=== PATIENT | male | born 1955 | race Caucasian/White ===

== ENCOUNTER 2024-12-23 11:52 | Emergency (ER) | payer MEDICARE, OTHER ==
[~2024-12-23] VITALS: Ht 177.8 cm; Wt 70.0 kg
[2024-12-23 11:54] VITALS: TEMP 97.4
--- NOTE | 2024-12-23 13:06 | Physician Documentation ---
History of Present Illness ~ Chief Complaint: Neck pain Stated Complaint: NECK PAIN/H BP Time Seen by MD: 14:04 HPI Presents with the acute onset right-sided neck pain without any traumatic injury. The pain is worse when rotating his neck or turning his head. States the pain radiates down to his right arm 69-year-old male presents to the emergency department for evaluation of right- sided arm and neck pain that radiates to his chest he is 1 day. Patient denies any overuse or traumatic injuries that he is aware of at this time. Patient reports he has a significant cardiac history history with forced into place hypertension and multiple other conditions that he reports he takes medication for at this time. Day of Onset: Dec 23, 2024 Medication Reconciliation Allergies: Coded Allergies: acetaminophen (Unverified Allergy, Unknown, 12/23/24) hydrocodone (Unverified Allergy, Unknown, 12/23/24) Past Medical History Past Medical History: No Pertinent History Past Surgical History: no surgical history Alcohol Use: Occasionally Review of Systems ROS As stated above in the HPI, otherwise all systems are reviewed and negative. Physical Exam Vital Signs: Temperature: 97.4, Source: Temporal, Heart Rate: 73, Respiratory Rate: 18, BP: 117/76, Pulse Oximetry: 96, Weight: 70.000 Physical Exam VITALS: Reviewed and as above. GENERAL: Alert, no apparent distress. HEENT: Normocephalic, atraumatic, PERRL, EOMI, dry mucosa, no erythema RESPIRATORY: Lungs clear, normal breath sounds, no respiratory distress. CHEST: No accessory muscle use, no retractions CV: Regular rate, rhythm, no edema, no murmur, No: JVD GI: Soft, non-tender, bowels sounds present, no rebound, guarding, or rigidity BACK: No CVA tenderness, or swelling MUSCULOSKELETAL No deformities, no edema, tenderness to the right shoulder with palpation and range of motion mild tenderness along the trapezius connecting from the cervical spine to the right shoulder. Point tenderness with cervical palpation. SKIN: Warm and dry, no rash NEURO: Oriented x4, No motor or sensory deficit PSYCH: Normal mood and affect, no agitation Progress Results/Orders Results/Orders Orders - YESENIA RENE OPERATIONS ENGINEER Chest,Single View (12/23/24 14:28) Hs Troponin I W Calculations (12/23/24 16:09) Hs Troponin I W Calculations (12/23/24 17:09) Completed Orders - YESENIA RENE OPERATIONS ENGINEER Cbc/Diff (12/23/24 14:09) Chest,Single View (12/23/24 14:28) Electrocardiogram (12/23/24 14:09) Hs Troponin I W Calculations (12/23/24 14:09) CMP (12/23/24 14:09) Ketorolac Trometh 30mg/Ml Vial (Toradol (12/23/24 15:45) Cyclobenzaprine Tablet (Flexeril Tablet) (12/23/24 15:45) Medications Received in ER Medications (Trade) Dose Ordered Sig/Tanner Route PRN Reason Start Time Stop Time Status Last Admin Dose Admin (Toradol inj. 30mg/ml) 30 mg ONCE ONCE IM 12/23/24 15:45 12/23/24 15:50 DC 12/23/24 16:01 30 MG (Flexeril tablet) 10 mg ONCE ONCE PO 12/23/24 15:45 12/23/24 15:46 DC 12/23/24 16:01 10 MG Vital Signs 12/23/24 12/23/24 12/23/24 11:54 16:01 16:09 Temp 97.4 Pulse 73 71 Resp 18 16 16 B/P (MAP) 117/76 122/71 Pulse Ox 96 98 Laboratory Tests Test 12/23/24 14:23 White Blood Count 8.0 Red Blood Count 4.40 L Hemoglobin 14.6 Hematocrit 44.4 Mean Corpuscular Volume 100.9 H Mean Corpuscular Hemoglobin 33.3 H Mean Corpuscular Hemoglobin Concent 33.0 Red Cell Distribution Width 14.6 H Platelet Count 196 Mean Platelet Volume 8.2 Neutrophils (%) (Auto) 65.8 Lymphocytes (%) (Auto) 10.7 L Monocytes (%) (Auto) 6.6 Eosinophils (%) (Auto) 16.3 H Basophils (%) (Auto) 0.6 Neutrophils # (Auto) 5.3 Lymphocytes # (Auto) 0.9 L Monocytes # (Auto) 0.5 Eosinophils # (Auto) 1.3 H Basophils # (Auto) 0.0 CBC Comment Sodium Level 140 Potassium Level 4.4 Chloride Level 107 Carbon Dioxide Level 25.2 Anion Gap 8 Blood Urea Nitrogen 17 Creatinine 1.18 H Estimated GFR/1.73 m2 62 BUN/Creatinine Ratio 14.4 Glucose Level 82 Calcium Level 8.7 Total Bilirubin 0.3 Aspartate Amino Transf (AST/SGOT) 14 Alanine Aminotransferase (ALT/SGPT) 14 Alkaline Phosphatase 93 Troponin I High Sensitivity 4 Total Protein 8.1 Albumin 3.9 Globulin 4.2 Albumin/Globulin Ratio 0.9 L Chemistry Comments Medical Decision Making Additional info obtained from: other Findings This patient presents with back pain most consistent with musculoskeletal spasm/strain/cervical radiculopathy. No back pain red flags on history or physical. Presentation not consistent with malignancy (lack of history of malignancy, lack of B symptoms), fracture (no trauma, no bony tenderness to palpation), transverse myelitis, (no sensory loss, no distal weakness), thoracic aortic dissection (equal peripheral pulses, no tachycardia, story does not fit), pneumonia (afebrile, no infectious symptoms), pulmonary embolism (Wells low risk), osteomyelitis or epidural abscess (no IVDU, vertebral tenderness). No concern for cardiac involvement at this time has 12 lead chest x-ray troponin and lab work all normal. X-ray of the cervical spine is without abnormality other than degenerative changes this time. Patient was given Toradol and Flexeril with significant improvement. Patient will be prescribed 5 days of Toradol with strict instructions and education regarding how to take this me dication. Patient was educated on not driving or operating equipment while taking this medication. Patient was also instructed to not take the medication if his symptoms subside and he does not need the medication. With his primary care provider. Patient will return to the emergency department with any worsening of his current symptoms or any additional concerning symptoms that we discussed here today i.e. increased pain increased numbness or tingling in his extremities fever chills nausea vomiting bladder incontinence numbness to his perineum or any other concerning symptoms that we discussed here today. Differential Dx:Considerations: Include: Cervical muscle spasm, Discitis, DJD, Meningitis, Thyroiditis, Torticollis, Vertebral artery dissect., Other Departure Disposition: 01 HOME / SELF CARE / HOMELESS Impression: Primary Impression: Neck pain Additional Impressions: Strain of neck muscle Cervical radiculopathy Additional Instructions: This patient presents with back pain most consistent with musculoskeletal spasm/strain/cervical radiculopathy. No back pain red flags on history or physical. Presentation not consistent with malignancy (lack of history of malignancy, lack of B symptoms), fracture (no trauma, no bony tenderness to palpation), transverse myelitis, (no sensory loss, no distal weakness), thoracic aortic dissection (equal peripheral pulses, no tachycardia, story does not fit), pneumonia (afebrile, no infectious symptoms), pulmonary embolism (Wells low risk), osteomyelitis or epidural abscess (no IVDU, vertebral tenderness). No concern for cardiac involvement at this time has 12 lead chest x-ray troponin and lab work all normal. X-ray of the cervical spine is without abnormality other than degenerative changes this time. Patient was given Toradol and Flexeril with significant improvement. Patient will be prescribed 5 days of Toradol with strict instructions and education regarding how to take this medication. Patient was educated on not driving or operating equipment while taking this medication. Patient was also instructed to not take the medication if his symptoms subside and he does not need the medication. With his primary care provider. Patient will return to the emergency department with any worsening of his current symptoms or any additional concerning symptoms that we discussed here today i.e. increased pain increased numbness or tingling in his extremities fever chills nausea vomiting bladder incontinence numbness to his perineum or any other concerning symptoms that we discussed here today. Referrals: NO PRIMARY CARE PROVIDER (PCP) Prescriptions Cyclobenzaprine* (Cyclobenzaprine*) 10 Mg Tablet 1 TAB PO BID for 5 Days, #10 TAB Prov: EYSENIA RENE 12/23/24 Education Educated: Patient Educated regarding: diagnosis, treatment, need for follow up Signature Scribe Signature: k Attestation: Scribed for Emergency,Department by Ishmael Acevedo NP . 12/23/24 13:06 ISHMAEL OLMOS NP Dec 23, 2024 13:06 YESENIA RENE Dec 23, 2024 14:14
[2024-12-23] MEDS ORDERED: ketorolac trometh 30MG/ML vial 30 MG/ML VIAL IV ONE (13:40)
[2024-12-23] MEDS ORDERED: ketorolac trometh 15mg/ml vial 15 MG/ML ML IV ONE (13:45)
--- NOTE | 2024-12-23 13:54 | RADIOLOGY REPORT ---
EXAM: DI CERVICAL SPINE LTD HISTORY: NECK PAIN COMPARISON: None TECHNIQUE: AP, lateral, and odontoid views of the cervical spine were performed. FINDINGS: No cervical fracture, listhesis, or prevertebral soft tissue edema are identified. There is severe Cervical degenerative disc disease and facet arthropathy. There is straightening of normal cervical lordosis. IMPRESSION: 1. No fracture of the cervical spine. 2. Advanced cervical degenerative disc disease and facet arthropathy. 3. Straightening of normal cervical lordosis may be positional, chronic for the patient, or due to muscle spasm.
[2024-12-23 14:35] LABS: MEAN PLATELET VOLUME 8.2 FL (7.4-10.4); RED CELL DISTRIBUTION WIDTH 14.6 % (11.5-14.5)
--- NOTE | 2024-12-23 14:40 | RADIOLOGY REPORT ---
CHEST RADIOGRAPH Indication: CHEST PAIN Technique: Single frontal view of the chest was obtained COMPARISON: None FINDINGS: Lines and Tubes: None Lungs: Clear Pleura: No effusion. No pneumothorax. Cardiomediastinal contours: Unremarkable Bones: Unremarkable IMPRESSION: No acute disease.
[2024-12-23 14:57] LABS: CREATININE 1.18 MG/DL (0.60-1.10); TOTAL CARBON DIOXIDE 25.2 MMOL/L (24-32); eCRCL 60 ML/MIN; eGFR 62 ML/MIN
--- NOTE | 2024-12-23 15:08 | ELECTROCARDIOGRAPH REPORT ---
[facility] Test Date: 2024-12-23 Test Time: 15:06:47 Pat Name: ELAN MCKEON Department: [facility]-ER Patient ID: [facility]-[id number] Room: Gender: M Accounting Analyst: : 1955 Requested By: YESENIA RENE Order Number: [id number] Reading MD: Measurements Intervals [place] Rate: 82 P: 44 AK: 164 QRS: 73 QRSD: 87 T: 20 QT: 355 QTc: 415 Interpretive Statements Sinus rhythm Please click the below link to view image of tracing.
[2024-12-23] MEDS: ketorolac trometh 30MG/ML vial 30 MG/ML VIAL IM ONE (16:01)
[2024-12-23 16:09] VITALS: BP 122/71; PULSE 71; RESP 16; O2SAT 98
[2024-12-23] MEDS ORDERED: CYCL-1 PO (16:36)
== END 2024-12-23 16:39 | disposition home or self-care (01) ==
LOC: ER 11:53
DX: S16.1XXA Strain of muscle, fascia and tendon at neck level, initial encounter (principal); I10 Essential (primary) hypertension; Z88.5 Allergy status to narcotic agent; Z72.89 Other problems related to lifestyle; X58.XXXA Exposure to other specified factors, initial encounter; Y93.89 Activity, other specified; Y92.89 Other specified places as the place of occurrence of the external cause; Y99.8 Other external cause status
CPT/HCPCS: 36415; 71045; 72040; 80053; 84484; 85025; 93005; 96372; 99285; J1885

== ENCOUNTER 2024-12-31 02:11 | Emergency (ER) | payer MEDICARE ==
[~2024-12-31] VITALS: Ht 177.8 cm; Wt 70.3 kg
[~2024-12-31 02:11] MED LIST: CYCL-1 PO
[2024-12-31 02:48] LABS: MEAN PLATELET VOLUME 8.2 FL (7.4-10.4); RED CELL DISTRIBUTION WIDTH 14.3 % (11.5-14.5)
[2024-12-31 03:06] LABS: CREATININE 1.40 MG/DL (0.60-1.10); PRO BRAIN NATRIURETIC PEPTIDE 124 PG/ML (0-125); TOTAL CARBON DIOXIDE 25.2 MMOL/L (24-32); eCRCL 51 ML/MIN; eGFR 51 ML/MIN
--- NOTE | 2024-12-31 03:46 | RADIOLOGY REPORT ---
CHEST RADIOGRAPH Indication: CP Technique: Single frontal view of the chest was obtained COMPARISON: DI CHEST,SINGLE VIEW on DOS: 12/23/24 FINDINGS: Lines and Tubes: None Lungs: Small left pleural effusion. No evidence of focal consolidation. No pneumothorax. Cardiomediastinal contours: Unremarkable Bones: Unremarkable IMPRESSION: 1. Small left pleural effusion.
[2024-12-31] MEDS ORDERED: CYCL-1 PO (04:08)
--- NOTE | 2024-12-31 04:09 | Physician Documentation ---
History of Present Illness ~ Chief Complaint: Chest Pain Stated Complaint: CHEST PAIN Time Seen by MD: 03:10 Mode of Arrival: POV HPI 69 year old male reports sternal pressure/pain that improved with home doses of nitroglyerin. Has history of CAD with 4 stents. Is now asymptomatic and denies chest pain, N/V/D, urinary symptoms, cough, shortness of breath. Medication Reconciliation Allergies: Coded Allergies: acetaminophen (Unverified Allergy, Unknown, 12/23/24) hydrocodone (Unverified Allergy, Unknown, 12/23/24) Scheduled Cyclobenzaprine* (Cyclobenzaprine*), 1 TAB PO BID Past Medical History Past Medical History: No Pertinent History Past Surgical History: no surgical history Alcohol Use: Occasionally Review of Systems All Other Systems at this time: Reviewed and Negative Physical Exam Vital Signs: RN Vital Signs have been reviewed: Yes, Temperature: 97.7, Source: Oral, Heart Rate: 63, Respiratory Rate: 11, BP: 100/69, Pulse Oximetry: 98, Weight: 70.300 Oxygen Flow Rate: 0 Physical Exam HEENT: PERRL, moist oral mucosa, EOMI Pulmonary: No respiratory distress CTAB Cardiac: RRR, no murmur, rub or gallop MSK: no deformity Skin: w/d/i, no rash Neuro: alert, nonfocal Psych: normal affect Progress Results/Orders Results/Orders Orders - UCHE GARY MD Chest,Single View (12/31/24 02:40) Monitor (12/31/24 02:13) Saline Lock (12/31/24 02:13) Oxygen (12/31/24 02:13) Electrocardiogram (12/31/24 02:13) Hs Troponin I W Calculations (12/31/24 05:13) Completed Orders - UCHE GARY MD Chest,Single View (12/31/24 02:40) Cbc/Diff (12/31/24 02:13) BMP (12/31/24 02:13) PBNP (12/31/24 02:13) Hs Troponin I W Calculations (12/31/24 02:13) Hs Troponin I W Calculations (12/31/24 04:13) Vital Signs 12/31/24 12/31/24 12/31/24 02:29 03:19 03:45 Temp 97.7 97.7 Pulse 69 63 Resp 15 11 B/P (MAP) 126/75 100/69 (79) Pulse Ox 96 98 O2 Flow Rate 0 0 Laboratory Tests Test 12/31/24 02:20 12/31/24 03:34 White Blood Count 8.6 Red Blood Count 4.00 L Hemoglobin 13.7 L Hematocrit 40.1 L Mean Corpuscular Volume 100.3 H Mean Corpuscular Hemoglobin 34.3 H Mean Corpuscular Hemoglobin Concent 34.2 Red Cell Distribution Width 14.3 Platelet Count 182 Mean Platelet Volume 8.2 Neutrophils (%) (Auto) 47.6 Lymphocytes (%) (Auto) 15.3 L Monocytes (%) (Auto) 6.5 Eosinophils (%) (Auto) 29.1 H Basophils (%) (Auto) 1.5 H Neutrophils # (Auto) 4.1 Lymphocytes # (Auto) 1.3 Monocytes # (Auto) 0.6 Eosinophils # (Auto) 2.5 H Basophils # (Auto) 0.1 CBC Comment Sodium Level 140 Potassium Level 4.4 Chloride Level 107 Carbon Dioxide Level 25.2 Anion Gap 8 Blood Urea Nitrogen 22 H Creatinine 1.40 H Estimated GFR/1.73 m2 51 BUN/Creatinine Ratio 15.7 Glucose Level 103 Calcium Level 8.0 L Troponin I High Sensitivity 4 4 Pro-B-Type Natriuretic Peptide 124 Albumin 3.5 Chemistry Comments Troponin I High Sens Percent Delta 0 Troponin I Hi Sens Absolute Change 0 Medical Decision Making Additional information obtaine: N/A Findings 69 year old male with chest pain that has now resolved. Benign exam and vitals, and workup including troponin x 2 unremarkable. EKG interpreted by me demonstrated sinus rhythm at rate of 75/min with no STEMI criteria nor dysrhythmia noted. CXR interpreted by me demonstrated normal contours, no PTX, no PNA. Remained hemodynamically stable and asymptomatic on reevaluation. Counseled, provided refill of flexeril for an arm pain that has been bothering him, and return precautions discussed. Heart Score: 1000 Differential Dx:Considerations: Include: other Additional Information Ddx = ACS/MO, PE, PNA, rib fracture Departure Disposition: HOME / SELF CARE / HOMELESS Impression: Primary Impression: Chest pain Condition: Stable Discharge Instructions: Nonspecific Chest Pain, Adult Referrals: NO PRIMARY CARE PROVIDER (PCP) Prescriptions Cyclobenzaprine* (Cyclobenzaprine*) 10 Mg Tablet 1 TAB PO Q8H for muscle spasms for 10 Days, #30 TAB 0 Refills Prov: UCHE GARY MD 12/31/24 Education Educated: Patient Educated regarding: diagnosis, treatment, prognosis, need for follow up Signature Scribe Signature: . Attestation: . UCHE GARY MD Dec 31, 2024 04:09
[2024-12-31 04:13] VITALS: BP 99/67; PULSE 62; RESP 14; TEMP 97.7; O2SAT 98
--- NOTE | 2024-12-31 06:03 | ELECTROCARDIOGRAPH REPORT ---
[facility] Test Date: 2024-12-31 Test Time: 02:16:43 Pat Name: ELAN MCKEON Department: EMERGENCY ROOM Room: Gender: M Trauma Coordinator: DELROY : 1955 Requested By: UCHE GARY Order Number: [id number] Reading MD: Measurements Intervals [place] Rate: 75 P: 30 CT: 161 QRS: 76 QRSD: 101 T: 59 QT: 404 QTc: 452 Interpretive Statements Sinus rhythm Multiple ventricular premature complexes Please click the below link to view image of tracing.
== END 2024-12-31 04:20 | disposition home or self-care (01) ==
LOC: ER 02:11
DX: R07.9 Chest pain, unspecified (principal); I25.10 Atherosclerotic heart disease of native coronary artery without angina pectoris; Z88.5 Allergy status to narcotic agent; Z95.5 Presence of coronary angioplasty implant and graft; Z79.899 Other long term (current) drug therapy; Z72.89 Other problems related to lifestyle
CPT/HCPCS: 36415; 71045; 80048; 83880; 84484; 85025; 93005; 99285